=== PATIENT | female | born 1990 | race Caucasian/White ===

== ENCOUNTER 2017-04-22 14:09 | Emergency (ER) | payer OTHER ==
[~2017-04-22] VITALS: Ht 162.6 cm; Wt 103.2 kg
[~2017-04-22 14:09] MED LIST: ANAPROX DS550 M1 PO; ATIVAN1 MG PO; AVENTYL,PAMELOR25 MG PO; BACTRIM,SEPT1 TABLET PO; DEPAKOTE ER500 MG PO; DEPAKOTE250 MG PO; DEPAKOTE500 MG PO; DILAUDID2 MG PO; FIORICET 50-301 EACH PO; FLAGYL500 MG PO; GABAPENTIN300 MG PO; IMITREX100 MG PO; INDERAL40 MG PO; KEPPRA500 MG PO; LYRICA50 MG PO; LYRICA75 MG PO; MELATONIN5 M1 PO; MOTRIN800 MG PO; NAPROXEN500 MG PO; NEURONTIN100 MG PO; NEURONTIN300 MG PO; NOHOMEMEDS; NORCO 5/3251 TABLET PO; PAXIL PO; PAXIL20 MG PO; PAXIL30 MG PO; PERCOCET 5/31 TABLET PO; PRENATAL LOW I1 EACH PO; REGLAN10 MG PO; REQUIP0.5 MG PO; SPRINTEC1 EACH PO; WELLBUTRIN100 MG; WOMEN'S DAILY1 EAC1 PO
[2017-04-22] MEDS ORDERED: IBUPROFEN800 MG PO (14:27)
[2017-04-22] MEDS ORDERED: AVENTYL,PAMELOR50 MG PO (14:27)
[2017-04-22 15:21] LABS: HEMATOCRIT 35.6 % (36.0-46.0); MCH 29.5 PG (29.0-34.0); MCHC 32.9 G/DL (30.0-36.0); MCV 89.7 FL (83-99); MEAN PLAT.VOLUME 10.3 uM^3 (9.5-12.4); PLATELET COUNT 327 K/uL (156-360); RBC DIS.WIDTH-CV 12.4 % (11.8-14.6); RBC DIS.WIDTH-SD 41.1 % (39-53); RED BLOOD COUNT 3.97 M/uL (3.80-5.20); WHITE BLOOD COUNT 8.6 K/uL (4.1-10.2)
[2017-04-22 15:30] LABS: CHLORIDE 107 mEq/L (99-109); SODIUM 140 mEq/L (136-147)
[2017-04-22 15:31] LABS: GLUCOSE 74 mg/dL (70-99)
[2017-04-22 15:32] LABS: ADD MIUA? YES; BILIRUBIN NEGATIVE; BLOOD LARGE; COLOR BLOODY ((YELLOW)); GLUCOSE (STRIP) NEGATIVE; KETONES NEGATIVE; LEUKOCYTES LARGE; NITRITE NEGATIVE; PH, URINE 7.5 (5-8); PROTEIN (STRIP) TRACE; SPECIFIC GRAVITY 1.008 (1.000-1.030); UROBILINOGEN 0.2 MG/DL (0.2-1.0)
[2017-04-22 15:33] LABS: ANION GAP 9 MEQ/L (2-14)
[2017-04-22 15:35] LABS: GFR ESTIMATE (CALCULATED) > 59 mL/min/
[2017-04-22 15:36] LABS: UREA NITROGEN (BUN) 10 mg/dL (9-23)
[2017-04-22 15:48] LABS: AMPHETAMINE NEGATIVE (500 ng/mL); BENZODIAZEPINES NEGATIVE (150 ng/mL); COCAINE NEGATIVE (150 ng/mL); METHADONE NEGATIVE (200 ng/mL); METHAMPHETAMINE NEGATIVE (500 ng/mL); OPIATES (MORPHINE) NEGATIVE (100 ng/mL); PHENCYCLIDINE NEGATIVE (25 ng/mL); RED BLOOD CELLS TNTC /HPF (0-5); THC CANNABINOIDS PRESUMPTIVE POSITIVE (50 ng/mL); TRICYCLIC ANTIDEPRESSANTS PRESUMPTIVE POSITIVE (300 ng/mL); UCUL ADDED? YES; WHITE BLOOD CELLS TNTC /HPF (0-5)
[2017-04-22 15:49] LABS: ADD MEDTOX COMMENT Y; BARBITURATES NEGATIVE (200 ng/mL); INTERNAL CONTROLS VALID? YES; OXYCODONE NEGATIVE (100 ng/mL); PROPOXYPHENE NEGATIVE (300 ng/mL)
[2017-04-22] MEDS ORDERED: KEFLEX500 MG PO (15:55)
[2017-04-22 16:24] VITALS: BP 119/79
== END 2017-04-22 16:25 | disposition home or self-care (01) ==
LOC: EME 14:09
PROVIDERS: Emergency Medicine
DX: N39.0 Urinary tract infection, site not specified (principal); F12.10 Cannabis abuse, uncomplicated; G40.909 Epilepsy, unspecified, not intractable, without status epilepticus; G43.909 Migraine, unspecified, not intractable, without status migrainosus
CPT/HCPCS: 80048; 81003; 84999; 85027; 87077; 87086; 87186; 93005; 99281; 99284

== ENCOUNTER 2017-05-18 15:02 | Emergency (ER) | payer OTHER ==
[~2017-05-18] VITALS: Ht 157.5 cm; Wt 101.0 kg
[~2017-05-18 15:02] MED LIST changes: +AVENTYL,PAMELOR50 MG PO; +IBUPROFEN800 MG PO; +KEFLEX500 MG PO
[2017-05-18 15:40] LABS: CHLORIDE 107 mEq/L (99-109); SODIUM 137 mEq/L (136-147)
[2017-05-18 15:41] LABS: GLUCOSE 83 mg/dL (70-99)
[2017-05-18 15:43] LABS: ANION GAP 7 MEQ/L (2-14)
[2017-05-18 15:45] LABS: GFR ESTIMATE (CALCULATED) > 59 mL/min/
[2017-05-18 15:46] LABS: UREA NITROGEN (BUN) 14 mg/dL (9-23)
[2017-05-18 16:50] LABS: INTERNAL CONTROL VALID? YES
[2017-05-18 16:52] LABS: ADD MIUA? YES; BILIRUBIN NEGATIVE; BLOOD SMALL; COLOR YELLOW ((YELLOW)); GLUCOSE (STRIP) NEGATIVE; KETONES NEGATIVE; LEUKOCYTES LARGE; NITRITE NEGATIVE; PROTEIN (STRIP) 30; SPECIFIC GRAVITY 1.024 (1.000-1.030)
[2017-05-18 17:18] LABS: RED BLOOD CELLS 0-5 /HPF (0-5)
[2017-05-18 17:19] LABS: BACTERIA 1+ /HPF; CASTS NONE SEEN /LPF; CRYSTALS NONE SEEN; EPITHELIAL CELLS 3+ /HPF; MUCUS 1+ /LPF; WHITE BLOOD CELLS 15-20 /HPF (0-5)
[2017-05-18 18:12] VITALS: BP 119/67
== END 2017-05-18 18:13 | disposition home or self-care (01) ==
LOC: EME 15:02
PROVIDERS: Physician Assistant
DX: R56.9 Unspecified convulsions (principal); G43.909 Migraine, unspecified, not intractable, without status migrainosus
CPT/HCPCS: 80048; 81003; 84703; 99281; 99284

== ENCOUNTER 2017-12-12 18:37 | Emergency (ER) | payer OTHER ==
[~2017-12-12] VITALS: Ht 162.6 cm; Wt 101.6 kg
[2017-12-12 19:48] LABS: BASOPHIL (%) 0.3 % (0-1); EOSINOPHIL (%) 4.6 % (0-5); EOSINOPHIL COUNT 0.5 K/uL (0-0.3); HEMATOCRIT 36.2 % (36.0-46.0); HEMOGLOBIN 12.1 G/DL (11.9-15.5); IMMATURE GRANULOCYTE (%) 0.3 % (0.0-0.7); LYMPHOCYTE (%) 18.1 % (15-42); MCH 30.5 PG (29.0-34.0); MCHC 33.4 G/DL (30.0-36.0); MCV 91.2 FL (83-99); MONOCYTE (%) 6.2 % (3-12); MONOCYTE COUNT 0.7 K/uL (0-0.8); NEUTROPHIL (%) 70.5 % (45-76); NEUTROPHIL COUNT 7.7 K/uL (1.8-6.4); PLATELET COUNT 292 K/uL (156-360); RBC DIS.WIDTH-SD 43.3 % (39-53); RED BLOOD COUNT 3.97 M/uL (3.80-5.20); WHITE BLOOD COUNT 10.9 K/uL (4.1-10.2)
[2017-12-12 19:58] LABS: CHLORIDE 109 mEq/L (99-109); SODIUM 138 mEq/L (136-147)
[2017-12-12 19:59] LABS: GLUCOSE 95 mg/dL (70-99)
[2017-12-12 20:03] LABS: CREATININE 0.9 mg/dL (0.6-1.3); GFR ESTIMATE (CALCULATED) > 59 mL/min/
[2017-12-12 20:04] LABS: UREA NITROGEN (BUN) 16 mg/dL (9-23)
[2017-12-12 20:12] LABS: QUANTITATIVE HCG < 4.0 MIU/ML
[2017-12-12] MEDS ORDERED: ZOFRAN ODT4 MG PO (22:16)
[2017-12-12] MEDS ORDERED: ZANTAC150 MG PO (22:16)
[2017-12-12 23:06] VITALS: BP 102/61
== END 2017-12-12 23:07 | disposition home or self-care (01) ==
LOC: EME 18:37
PROVIDERS: Emergency Medicine
DX: R55 Syncope and collapse (principal); I95.1 Orthostatic hypotension; R11.0 Nausea; R42 Dizziness and giddiness; G40.909 Epilepsy, unspecified, not intractable, without status epilepticus
CPT/HCPCS: 80048; 84702; 85025; 93005; 99281; 99285; J7040